=== PATIENT | male | born 1965 | race Caucasian/White ===

== ENCOUNTER 2016-04-17 23:15 | Emergency (ER) | payer SELFPAY ==
[~2016-04-17] VITALS: Ht 61 cm; Wt 6.0 kg
[~2016-04-17 23:15] MED LIST: CIPR750T10
[2016-04-17 23:17] VITALS: BP 127/83; PULSE 88; RESP 16; TEMP 97.7; O2SAT 95
--- NOTE | 2016-04-18 01:14 | PD ---
HPI Chief Complaint: Musculoskeletal Complaint Time Seen by Provider: 01:13 Travel History International Travel<30 days: No Contact w/Intl Traveler<30days: No Traveled to known affect area: No History of Present Illness HPI 50-year-old white male presents to emergency department with complaints of left knee pain. He states he was walking this evening when something snap in his left knee. Since then he's had decreased ability to bear weight. He denies any locking or giving out. Denies any prior injury. Pain is moderate but more severe with attempting to weight-bear. PFSH Past Medical History Medical History: Denies Significant Hx Diminished Hearing: No Tetanus Vaccination: < 5 Years Past Surgical History Surgical History: No Previous Surgery Social History Alcohol Use: Yes (6 PK YR) Tobacco Use: Yes (1 1/2 PK DAY) Allergies-Medications (Allergen,Severity, Reaction): Coded Allergies: No Known Allergies (Verified , 04/18/16) Reported Meds & Prescriptions Reported Meds & Active Scripts Active Diclofenac Sodium DR (Diclofenac Sodium) 75 Mg Tabdr 75 Mg PO BID Review of Systems Except as stated in HPI: all other systems reviewed are Neg Physical Exam Narrative GENERAL: This is a well-nourished, well-developed patient, in no apparent distress. SKIN: No rashes, ecchymoses or lesions. Warm and dry. HEAD: Atraumatic. Normocephalic. EYES: PERRL, EOMI, no discharge or injection. No scleral icterus. EARS: Clear NOSE: Nasal turbinates appear normal. THROAT: Mucosa pink and moist. Airway patent. NECK: Trachea midline. supple, moves head freely. LUNGS: Clear to auscultation. CV: Regular in rhythm. ABDOMEN: Soft nontender. EXT: No clubbing cyanosis or edema. Examination of left lower extremity reveals intact sensation with good distal pulses. No obvious joint effusion. No pain in the hip, ankle or foot. The patient has tenderness to the posterior insertion of the calf. It is point tender to touch. There is no anterior posterior draw. No medial lateral collateral ligament instability or pain. Data Data Last Documented VS Vital Signs Date Time Temp Pulse Resp B/P Pulse Ox O2 Delivery O2 Flow Rate FiO2 04/17/16 23:17 97.7 88 16 127/83 95 Room Air Orders Knee, Complete (4vws) (04/18/16 01:14) Ice/Cold Pack (3/3/17 01:14) Splint Or Brace Apply/Monitor (04/18/16 01:19) Crutches (04/18/16 01:19) Ibuprofen (Motrin) (04/18/16 01:30) Acetamin-Hydrocod 325-5 Mg ([place] 5-325 (04/18/16 01:30) MDM Medical Decision Making Medical Screen Exam Complete: Yes Emergency Medical Condition: Yes Medical Record Reviewed: Yes Interpretation(s) Left knee: Negative for acute bony injury. Differential Diagnosis MDM: High Differential diagnoses: Fracture, sprain, strain, dislocation, contusion, neurovascular injury Narrative Course X-ray of the left knee is negative. Patient given Lortab 5 and Motrin 800 mg by mouth. Krzysztof wrap applied. Crutches. This is left calf strain Diagnosis Primary Impression: Gastrocnemius strain, left Qualified Code: S86.112A - Gastrocnemius strain, left, initial encounter Patient Instructions: General Instructions Departure Forms: Tests/Procedures, Work Release Special Instructions: No work 3 days. Additional Instructions: Rest. Elevation. Ice packs for the next 3 days. Krzysztof wrap and crutches. No weight-bearing and then progress to weight-bearing as tolerated. Medications as directed Follow-up with an orthopedist or your doctor in one week. Return to the ER if any problems Med/Other Pt SpecificInfo: Prescription(s) given Scripts Diclofenac Sodium DR 75 Mg Tabdr75 Mg PO BID #20 TAB Prov:Gala Betancourt MD 04/18/16 Disposition: 01 DISCHARGE HOME Condition: Stable Landon Medrano Apr 18, 2016 01:14 Landon Medrano Apr 18, 2016 01:14
[2016-04-18] MEDS ORDERED: DICL75TA PO (01:21)
[2016-04-18] MEDS ORDERED: ACETAMINOPHEN/HYDROcodone 325 MG/5 MG TAB PO ONE (01:30)
[2016-04-18] MEDS ORDERED: IBUPROFEN 800 MG TAB PO ONE (01:30)
--- NOTE | 2016-04-18 01:57 | RADRPT ---
EXAM DATE/TIME: 04/18/2016 01:38 [facility] COMPARISON: No previous studies available for comparison. INDICATIONS : Left knee pain. MEDICAL HISTORY : None. SURGICAL HISTORY : None. ENCOUNTER: Initial ACUITY: 1 day PAIN SCORE: 5/10 LOCATION: Left knee. FINDINGS: Four view examination of the left knee demonstrates no evidence of fracture or dislocation. Bony min eralization is normal. The articular surfaces are intact. The suprapatellar soft tissues have a nor mal configuration. CONCLUSION: Unremarkable examination of the left knee. Chandan Rasmussen MD on April 18, 2016 at 1:54 Board Certified Radiologist. This report was verified electronically.
== END 2016-04-18 02:10 | disposition home or self-care (01) ==
LOC: NEPB 23:15
DX: S86.812A Strain of other muscle(s) and tendon(s) at lower leg level, left leg, initial encounter (principal); F17.210 Nicotine dependence, cigarettes, uncomplicated; Y93.01 Activity, walking, marching and hiking; Y92.9 Unspecified place or not applicable
CPT/HCPCS: 73564; 99283; E0113